=== PATIENT | male | born 1955 | race Caucasian/White ===

== ENCOUNTER 2018-11-07 15:21 | Outpatient (CLI) | payer BC | END 2018-11-07 23:59 | disposition home or self-care (01) | LOC: CFH 15:21 | PROVIDERS: ATTEND Internal Medicine | DX: S22.31XA Fracture of one rib, right side, initial encounter for closed fracture (principal); X58.XXXA Exposure to other specified factors, initial encounter; Y93.89 Activity, other specified; Y92.89 Other specified places as the place of occurrence of the external cause; Y99.8 Other external cause status | CPT/HCPCS: 71046 ==

== ENCOUNTER 2020-04-17 12:25 | Outpatient (CLI) | payer OTHER | END 2020-04-17 23:59 | disposition home or self-care (01) | LOC: RAD 12:25 | PROVIDERS: ATTEND Radiology Diagnostic Radiology | DX: S22.41XS Multiple fractures of ribs, right side, sequela (principal); J98.11 Atelectasis; J98.4 Other disorders of lung; X58.XXXS Exposure to other specified factors, sequela | CPT/HCPCS: 71046 ==